=== PATIENT | female | born 1965 | race Caucasian/White ===

== ENCOUNTER 2019-02-21 11:24 | Emergency (ER) | payer OTHER ==
[~2019-02-21] VITALS: Ht 165.1 cm; Wt 63.5 kg
[2019-02-21 11:24] VITALS: BP_SYST 120
--- NOTE | 2019-02-21 11:24 | NUR ---
BROUGHT IN BY [facility], PLACED IN BED #5 AND TRIAGED. PT NOT COOPERATIVE WITH QUESTIONS, NON-VERBAL AT THIS TIME. REPORT GIVEN TO REBECCA
--- NOTE | 2019-02-21 11:24 | NUR ---
Yeny gamble in ED - 02/21/19 at 1156 by NASEDLLIda BROUGHT BACK TO BED #7 AND TRIAGED. REPORT GIVEN TO BOBBI
[2019-02-21 11:25] VITALS: BP_SYST 102
--- NOTE | 2019-02-21 11:30 | NUR ---
ER at bedside examining patient.
[2019-02-21] MEDS ORDERED: NS 1000 ML IV.SOLN IV ONE (12:15)
--- NOTE | 2019-02-21 12:30 | NUR ---
# 20 gauge angiocath placed to LAC. Use of asceptic technique. Opsite placed over site. Blood return noted. Blood for lab drawn from site. Flushed with 10 cc of normal saline. No evidence of infiltration noted. Patient tolerated well.
[2019-02-21 13:14] LABS: BASOPHILS # (AUTO) 0.1 K/uL (0.0-0.2); BASOPHILS % (AUTO) 0.7 % (0.0-2.0); EOSINOPHILS # (AUTO) 0.1 K/uL (0.0-0.4); EOSINOPHILS % (AUTO) 1.2 % (0.0-4.0); HEMATOCRIT 41.1 % (36-48); HEMOGLOBIN 13.9 g/dL (12.0-16.0); LYMPHOCYTES # (AUTO) 1.6 K/uL (1.0-5.5); LYMPHOCYTES % (AUTO) 22.1 % (20.5-51.5); MEAN CORPUSCULAR HEMOGLOBIN 30 pg (27-31); MEAN CORPUSCULAR HGB CONC 34 % (32-36); MEAN CORPUSCULAR VOLUME 89 fL (79.0-98.0); MONOCYTES # (AUTO) 0.6 K/uL (0.0-1.0); MONOCYTES % (AUTO) 7.9 % (1.7-9.3); NEUTROPHILS # (AUTO) 4.8 K/uL (1.8-7.7); NEUTROPHILS % (AUTO) 68.1 % (40.0-70.0); PLATELET COUNT (AUTO) 156 K/uL (130-430); RED CELL DISTRIBUTION WIDTH 14.2 % (9.0-15.0); WHITE BLOOD COUNT (AUTO) 7.1 K/uL (4.8-10.8)
[2019-02-21 13:15] LABS: CALCIUM 9.2 mg/dL (8.4-11.0); CHLORIDE 105 mmol/L (98-107); CREATININE 0.73 mg/dL (0.55-1.30); GLUCOSE 79 mg/dL (70-99); SODIUM SERUM 137 mmol/L (136-145); UREA NITROGEN, BLOOD 13 mg/dL (8-21)
[2019-02-21 13:16] LABS: ALANINE AMINOTRANSFERASE 16 U/L (12-78); ALBUMIN 3.4 g/dL (3.4-4.8); ASPARTATE AMINOTRANSFERASE 9 U/L (10-37); LIPASE 85 U/L (73-393); TOTAL BILIRUBIN 0.4 mg/dL (0.0-1.0)
[2019-02-21 13:18] LABS: ANION GAP < 3 (5-15); GFR AFRICAN AMERICAN 107 mL/min (>90)
--- NOTE | 2019-02-21 13:40 | NUR ---
PT TOLERATING IVF.
--- NOTE | 2019-02-21 14:50 | NUR ---
PT TOLERATED 100%OF MEAL TRAY GIVEN
--- NOTE | 2019-02-21 15:34 | NUR ---
per pt's sitter from facility gave us the direct number for a direct nurse to nurse update because supervisor roving department is off.
--- NOTE | 2019-02-21 15:59 | NUR ---
Report given to Bar Attendant at [place]
[2019-02-21 16:27] LABS: BILIRUBIN,URINE NEGATIVE (NEGATIVE); BLOOD, URINE NEGATIVE (NEGATIVE); CLARITY/URINE CLEAR (CLEAR); COLOR,URINE YELLOW (YELLOW); GLUCOSE,URINE NEGATIVE (NEGATIVE); KETONES,URINE NEGATIVE (NEGATIVE); LEUKOCYTE ESTERASE ,URINE 1+ (NEGATIVE); NITRITE, URINE NEGATIVE (NEGATIVE); PH,URINE 5.5 (5.0-8.0); PROTEIN URINE NEGATIVE (NEGATIVE); UROBILINOGEN,URINE 0.2 (0.2-1.0)
[2019-02-21 16:30] VITALS: BP_SYST 102
--- NOTE | 2019-02-21 16:30 | NUR ---
Patient given written and verbal discharge instructions and verbalizes understanding. ER MD discussed with patient the results and treatment provided. Patient in stable condition. ID arm band removed. IV catheter removed intact and dressing applied, no active bleeding. NO Rx given. Patient educated on pain management and to follow up with PMD. Pain Scale 0. Opportunity for questions provided and answered. Medication side effect fact sheet provided.
[2019-02-21 17:03] LABS: BACTERIA,URINE FEW /HPF (None Seen); RBC,URINE 0-3 /HPF (0-3)
== END 2019-02-21 16:30 | disposition home or self-care (01) ==
LOC: SED 11:24
DX: F29 Unspecified psychosis not due to a substance or known physiological condition (principal); E86.0 Dehydration
CPT/HCPCS: 36415; 71045; 80053; 81000; 83605; 83690; 85025; 87040; 87086; 93005; 96360; 99285; J7030; 96361